=== PATIENT | male | born 1990 | race Caucasian/White ===

== ENCOUNTER 2019-11-25 09:09 | Emergency (ER) | payer MEDICAID ==
[~2019-11-25] VITALS: Ht 180.3 cm; Wt 86.0 kg
[2019-11-25 09:12] VITALS: BP 121/76
[2019-11-25] MEDS ORDERED: ibuprofen tablet 400 MG TABLET PO ONE (09:25)
[2019-11-25] MEDS ORDERED: TETanus/Pertussis (Acell)/Diphther VAC/PF (Tdap-Adult) 0.5ml syringe IMVAC ONE (09:40)
== END 2019-11-25 10:02 | disposition home or self-care (01) ==
LOC: ER 09:10
DX: S90.01XA Contusion of right ankle, initial encounter (principal); S90.811A Abrasion, right foot, initial encounter; V98.8XXA Other specified transport accidents, initial encounter; Y93.89 Activity, other specified; Y92.89 Other specified places as the place of occurrence of the external cause; Y99.8 Other external cause status
CPT/HCPCS: 73610; 90471; 90715; 99283